=== PATIENT | male | born 1945 | race Caucasian/White ===

== ENCOUNTER 2017-08-17 06:18 | Inpatient (IN) ==
[2017-08-11 10:22] LABS: Basophils % 0.5 % (0.0-0.8); Eosinophils # 0.1 10*3/uL (0.0-0.87); Eosinophils % 1.9 % (0.00-10.9); Hematocrit 46.8 VOL% (42.0-52.0); Hemoglobin 16.4 GM/DL (14.0-18.0); Immature Granulocytes % 0.2 %; Immature Granulocytes Absolute 0.01 #; Lymphocytes # 1.1 10*3/uL (1.4-4.0); Lymphocytes % 18.4 % (21.2-54.2); Mean Corpuscular Hemoglobin 32 PG (27-34); Mean Corpuscular Volume 90.3 FL (87-102); Mean Platelet Volume 11.4 FL (9.6-12.0); Monocytes # 0.5 10*3/uL (0.11-0.8); Monocytes % 9.3 % (1.7-12.7); Neutrophils % 69.7 % (38.7-73.9); Platelet Count 135 T/CUMM (130-400); Red Blood Count 5.18 MC/CUMM (3.8-5.5); Red Cell Distribution Width 12.5 % (9.3-17.3); White Blood Count 5.8 T/CUMM (4-12)
[2017-08-11 10:57] LABS: Bilirubin,Total 0.6 MG/DL (0.2-1.0); Calcium 9.1 MG/DL (8.5-10.1); Osmolality,Calculated 285.7 MOS/KG (273-304); Potassium 4.1 MMOL/L (3.5-5.1); Total Protein 7.3 G/DL (6.4-8.3)
[~2017-08-17 06:18] MED LIST: ceFAZolin 1,000 MG in SYRINGE 1 EACH IV ONE
[2017-08-17] MEDS ORDERED: ceFAZolin 1,000 MG VIAL ONE (07:35)
[2017-08-17] MEDS ORDERED: HEPARIN 5,000 UNIT/1 ML VIAL ONE (07:46)
[2017-08-17] MEDS ORDERED: LIDOCAINE 1% 20 ML VIAL ONE (07:46)
[2017-08-17] MEDS ORDERED: LACTATED RINGERS 1,000 ML IV SCH (08:00)
[2017-08-17] MEDS ORDERED: PHENYLEPHRINE 10 MG/1 ML VIAL IV ONE (08:19)
[2017-08-17] MEDS ORDERED: NITROGLYCERIN DRIP 50 MG/250 ML BOTTLE IV ONE (08:19)
[2017-08-17] MEDS ORDERED: HYDROmorphone 2 MG/1 ML VIAL IV PRN ×2 (10:24)
[2017-08-17] MEDS ORDERED: ONDANSETRON 4 MG/2 ML VIAL IV PRN (10:24)
[2017-08-17] MEDS ORDERED: GLUCAGON 1 MG VIAL IM PRN (10:24)
[2017-08-17] MEDS ORDERED: oxyCODONE/ACETAMINOPHEN 5-325 MG TABLET PO PRN (10:24)
[2017-08-17] MEDS ORDERED: DEXTROSE 50% 25 GM/50 ML VIAL IV PRN (10:24)
[2017-08-17] MEDS ORDERED: PROMETHAZINE 25 MG/1 ML VIAL IM PRN (10:24)
[2017-08-17] MEDS ORDERED: NALOXONE 0.4 MG/ML VIAL IV PRN (10:24)
[2017-08-17] MEDS ORDERED: PHENYLEPHRINE DRIP 40 MG/250 ML PREMIX IV SCH (10:30)
[2017-08-17] MEDS ORDERED: NITROPRUSSIDE 100 MG in DEXTROSE 5% 250 ML IV SCH (10:30)
[2017-08-17] MEDS: MORPHINE 10 MG/1 ML VIAL IV PRN ×3 (10:50→11:00)
[2017-08-17] MEDS ORDERED: SEVOFLURANE 1 UNIT/15 MINUTE INH ONE (10:52)
[2017-08-17] MEDS ORDERED: HEPARIN/NACL 0.9% 2 UNITS/ML 500 ML IV ONE (10:52)
[2017-08-17] MEDS ORDERED: PROPOFOL 200 MG/20 ML VIAL IV ONE (10:52)
[2017-08-17] MEDS ORDERED: SODIUM CHLORIDE 0.9% 1,000 ML IV ONE (10:53)
[2017-08-17] MEDS ORDERED: fentaNYL 100 MCG/2 ML VIAL ONE (10:53)
[2017-08-17] MEDS ORDERED: ePHEDrine 50 MG/ML AMP ONE (10:53)
[2017-08-17] MEDS ORDERED: ROCURONIUM 100 MG/10 ML VIAL IV ONE (10:53)
[2017-08-17] MEDS ORDERED: hydrALAZINE 20 MG/1 ML VIAL ONE (10:53)
[2017-08-17] MEDS ORDERED: ONDANSETRON 4 MG/2 ML VIAL ONE (10:53)
[2017-08-17] MEDS ORDERED: NEOSTIGMINE 10 MG/10 ML VIAL ONE (10:53)
[2017-08-17] MEDS ORDERED: GLYCOPYRROLATE 0.4 MG/2 ML VIAL ONE (10:53)
[2017-08-17] MEDS ORDERED: HEPARIN 10,000 UNIT/10 ML VIAL ONE (11:01)
[2017-08-17] MEDS: ASPIRIN EC 81 MG TABLET PO SCH (12:14)
[2017-08-17] MEDS: sitaGLIPtin 100 MG TABLET PO SCH (12:15)
[2017-08-17] MEDS: LACTATED RINGERS 1,000 ML IV SCH (12:16)
[2017-08-17] MEDS: GLIMEPIRIDE 4 MG TABLET PO SCH (17:31)
[2017-08-17] MEDS ORDERED: ATORVASTATIN 80 MG TABLET PO SCH (21:00)
[2017-08-17] MEDS ORDERED: MAGNESIUM OXIDE 400 MG TABLET PO SCH (21:00)
[2017-08-17] MEDS ORDERED: PANTOPRAZOLE 20 MG TABLET PO SCH (21:00)
[2017-08-17] MEDS ORDERED: CARVEDILOL 25 MG TABLET PO SCH (21:00)
[2017-08-18] MEDS: oxyCODONE/ACETAMINOPHEN 5-325 MG TABLET PO PRN ×2 (02:43→05:04)
[2017-08-18] MEDS: LACTATED RINGERS 1,000 ML IV SCH ×2 (03:17→10:36)
[2017-08-18] MEDS: GLIMEPIRIDE 4 MG TABLET PO SCH (08:07)
[2017-08-18] MEDS: ASPIRIN EC 81 MG TABLET PO SCH (08:07)
[2017-08-18] MEDS ORDERED: hydroCHLOROthiazide 25 MG TABLET PO SCH (09:00)
[2017-08-18] MEDS ORDERED: DABIGATRAN 150 MG CAPSULE PO SCH (09:00)
[2017-08-18] MEDS ORDERED: JARDIANCE 25 MG PO SCH (09:00)
[2017-08-18] MEDS: sitaGLIPtin 100 MG TABLET PO SCH (12:03)
[2017-08-18 17:27] VITALS: BP 123/68
== END 2017-08-18 17:39 | disposition home or self-care (01) | DRG 38 ==
LOC: N.OR 06:18 → N.SDSINP 06:19 → N.ICU 09:30
PROVIDERS: ADMIT Surgery; ATTEND Surgery